=== PATIENT | female | born 1960 | race Caucasian/White ===

== ENCOUNTER → 2020-09-02 12:51 | Outpatient (CLI) | payer MEDICAID, SELFPAY ==
--- NOTE | 2020-09-02 13:02 | CDU_ITS ---
Reason For Study: Amaurosis fugax Rt. Velocities/BP Lt. Velocities/BP Prox CCA 91.7/18.6 cm/sec. Prox CCA 95.6/21.3 cm/sec. Mid CCA 85.2/17.3 cm/sec. Mid CCA 99.5/23.9 cm/sec. Dist CCA 78.6/22.6 cm/sec. Dist CCA 72.1/18.6 cm/sec. Prox ICA 39.5/10.8 cm/sec. Prox ICA 33.3/12.4 cm/sec. Mid ICA 82.6/23.9 cm/sec. Mid ICA 65.1/21.2 cm/sec. Dist ICA 68.2/.26.5 cm/sec. Dist ICA 59.7/21.2 cm/sec. Rt. ICA/CCA = 1.0. Lt. ICA/CCA = .7. Prox ECA 61.7/10.8 cm/sec. Prox ECA 86.5/13.4 cm/sec. Rt. Vert. 46.0/13.4 cm/sec. Lt. Vert. 47.6/12.4 cm/sec. Right Extracranial There is intimal thickening but no significant atherosclerotic plaque noted in the right common carotid artery. There is heterogeneous, smooth atherosclerotic plaque noted in the right internal carotid artery. There is intimal thickening but no significant atherosclerotic plaque noted in the right external carotid artery. Antegrade flow is noted in the right vertebral artery. Left Extracranial There is intimal thickening but no significant atherosclerotic plaque noted in the left common carotid artery. There is intimal thickening but no significant atherosclerotic plaque noted in the left internal carotid artery. There is intimal thickening but no significant atherosclerotic plaque noted in the left external carotid artery. Antegrade flow is noted in the left vertebral artery. Procedure Carotid Duplex [id number]. This is a Carotid Duplex examination using B-mode, color flow and specral Doppler. The exam was diagnostic. Exam performed in department. Interpretation Summary Mild (<50%) stenosis right extracranial internal carotid. No significant atherosclerotic plaque or stenosis noted in the left internal carotid artery. Flow within the vertebral arteries is antegrade bilaterally. Ordering Physician: Jonas Roldan Performed By: Roberto Maxwell RVT
== END ==
PROVIDERS: PCP Family Medicine; Referring Provider Ophthalmology; Visit Provider Ophthalmology
DX: G45.3 Amaurosis fugax (principal)
CPT/HCPCS: 93880

== ENCOUNTER 2021-02-11 15:30 | Outpatient (RCR) | payer MEDICAID, SELFPAY ==
--- NOTE | 2021-02-02 14:00 | HP.PTEVAL_ITS ---
Patient's Visit Information STEVEN REICH is a 60 year old F referred to Physical Therapy by Dr. Joni Sol MD with a diagnosis of Fibromyalsia with neck pain and PAPPAS.. Date of Evaluation: 02/02/21 Physical Therapist: Dharmesh Tucker DPT - Visit Plan Frequency: 2x /Week Duration: 4 Weeks Plan: Start with manual therapy for UT and suboccipitals, cervical ROM with SNAGs. Thoracic ROM into extension. Postural strengthing as tolerated. - Subjective Pt. is here today for her initial evaluation with diagnosis of fibromyalsia. Pt. reports having neck pain and PAPPAS over the past feeel months. She ws previously taking Welbutrin as she was going through a very stressful point in her life as he had suddently pasted away. Pt. desided to stop taking the Welbutrin and has noticed an improvement in her symptoms. Pt. reports decreased PAPPAS as well. Pt. reports no PAPPAS currently, but is having stiffness in her neck. She has doing chiropractic with mild relief. No N/T in either UE. No issues sleeping. Overall has seen improvement since stopping use of Welbutrin. Pt. is hopeful to decrease her tension in her neck and reduce her PAPPAS further allowing for increased tolerance to all ADLs and recreational activities. - Pain B UT Pain Intensity (Out of 10): 3 Pain Intensity Range: 1, 6 PAPPAS Pain Intensity (Out of 10): 0 Pain Intensity Range: 0, 5 Comment: sub acromial region - Objective POSTURE: Pt. has FH posture, slight rounded shoulders. Increased thoracic kyphosis noted as well. Improves in standing. PALPATION: Pt. has tenderness at sub occpitals bilaterally, R UT and R levator scapulea. NEURO: normal sensation and normal DTR of Biceps and tricsps. ROM: CERVICAL SPINE: flexion nil loss NE, extension min loss increase NW, SB R min loss NE, SB L min loss increase NW, rotation min loss bilat increase NW bilaterally. Shoulders: full no issues bilaterally. Thoracic spine: extension min/mod loss increase NW. rotation: nil loss NE bilat. MMT: B shoulders: 5/5 throughout. Cervical iso metrics 5/5 throughout; Deep flexor endurance hal 29sec with chin tuck. - Special Tests C/S Radiculapathy - Left Upper limb tension test: Negative C/S Radiculapathy - Right Upper limb tension test: Negative C/S Radiculapathy - Left Spurlings: Negative C/S Radiculapathy - Right Spurlings: Negative C/S Radiculapathy - Left Cervical distraction: Negative C/S Radiculapathy - Right Cervical distraction: Negative C/S Radiculapathy - Left Relief test: Negative C/S Radiculapathy - Right Relief test: Negative C/S Radiculapathy - Valsalva: Negative Cervical Sitting: Protrusion - Mechanical Response: No effect Cervical Sitting: Protrusion - Symptoms During Testing: No effect Cervical Sitting: Protrusion - Symptoms After Testing: No effect Cervical Sitting: Retraction - Mechanical Response: Increases motion Cervical Sitting: Retraction - Symptoms During Testing: Increases Cervical Sitting: Retraction - Symptoms After Testing: No worse Cervical Sitting: Retraction-Extension - Mechanical Response: Increases motion Cerv Sitting: Retraction-Extension - Symptoms During Testing: Increases Cerv Sitting: Retraction-Extension - Symptoms After Testing: No worse Cervical Sitting: Flexion - Mechanical Response: No effect Cervical Sitting: Flexion - Symptoms During Testing: No effect Cervical Sitting: Flexion - Symptoms After Testing: No effect Thoracic Sitting: Flexion - Mechanical Response: No effect Thoracic Sitting: Flexion - Symptoms During Testing: No effect Thoracic Sitting: Flexion - Symptoms After Testing: No effect Thoracic Sitting: Extension - Mechanical Response: Increases motion Thoracic Sitting: Extension - Symptoms During Testing: Increases Thoracic Sitting: Extension - Symptoms After Testing: No worse - Goals Goal 1:: LTG: Pt. to be I with HEP. Goal Time Frame: 4-6 Weeks Goal 2:: STG: pt. to sleep throughout the night without increase in symptoms. Goal Time Frame: 2-4 Weeks Goal 3:: LTG: Pt. to have decreased HAs to x1 occurance per week. Goal Time Frame: 4-6 Weeks Goal 4:: LTG: pt. to have improved postural awareness as seen in maintaining proper posture throughout therapy session. Goal Time Frame: 4-6 Weeks Goal 5:: LTG: Pt. to have full cervical ROM without increase in symptoms. Goal Time Frame: 4-6 Weeks Goal 6:: LTG: pt. to be able to complete deep neck flexor endurance test for 60sec without issues. - Rehabilitation Potential Physical Therapy Diagnosis: Pt. has signs and symptoms consistent with Fi bromyalsia with neck pain and HAs. Pt. has reduced HAs since removing a certain medications, but is still having stiffness in her thoracic spine and cervical spine. Pt. would benefit from PT to increase cervical ROM and postural mechanics and Rehabilitation Potential: Excellent - Anticipated Interventions Patient/Client Instruction: Educate patient on: Condition, Plan of Care, Risk Factors, Benefits of Fitness Program For the Purpose of:: To improve decision making, To improve self management, To prevent re-injury, To improve ability to perform tasks related to life management, To improve tolerance to ADL's Therapeutic Exercise to Include: Strength training, Power training, Endurance training, Postural training, Flexibilty training, Passive ROM, Active ROM, Dynamic Lumbar Stabilization, Best Exercises For the Purpose of:: To decrease pain, To decrease swelling/inflammation, To increase ROM, To improve nutrient delivery to tissue, To increase oxygenation perfusion, To improve muscle performance and motor function, To improve health of tissue, To decrease soft tissue restriction, To increase flexibility/ROM, To improve endurance Manual Therapy Techniques to Include: Mobilization, Functional dry needling, Soft tissue mobilization For the Purpose of:: To decrease pain, To increase ROM, To improve nutrient delivery to tissue, To increase oxygenation perfusion, To improve muscle performance and motor function, To improve health of tissue, To decrease soft tissue restriction, To increase flexibility/ROM Thank you for the opportunity to evaluate your patient. For Medicare and Medicare HMO plans, please review the plan of care and approve it. It will need to be FAXED BACK to us at [phone] for Medicare purposes. For Medicare only, by signing this I certify the plan of care. Please let me know if there are questions or concerns regarding this plan of care. Physician Signature: Date:
--- NOTE | 2021-03-04 15:27 | HP.PTDCNRP_ITS ---
STEVEN REICH was seen in my office for initial evaluation on 02/02/21. The following Plan of Care was established for this patient: Initial Frequency: 2x /Week Initial Duration: 4 Weeks Patient/Client Instruction: Educate patient on: Condition, Plan of Care, Risk Factors, Benefits of Fitness Program For the Purpose of:: To improve decision making, To improve self management, To prevent re-injury, To improve ability to perform tasks related to life management, To improve tolerance to ADL's Therapeutic Exercise to Include: Strength training, Power training, Endurance training, Postural training, Flexibilty training, Passive ROM, Active ROM, Dynamic Lumbar Stabilization, Best Exercises For the Purpose of:: To decrease pain, To decrease swelling/inflammation, To increase ROM, To improve nutrient delivery to tissue, To increase oxygenation perfusion, To improve muscle performance and motor function, To improve health of tissue, To decrease soft tissue restriction, To increase flexibility/ROM, To improve endurance Manual Therapy Techniques to Include: Mobilization, Functional dry needling, Soft tissue mobilization For the Purpose of:: To decrease pain, To increase ROM, To improve nutrient delivery to tissue, To increase oxygenation perfusion, To improve muscle performance and motor function, To improve health of tissue, To decrease soft tissue restriction, To increase flexibility/ROM This patient was last seen in our office 02/11/21. Pertinent comments regarding their Physical therapy will appear below: Pt. was seen for her initial evaluation and 1 follow. She has not been seen since for several weeks and will be DC from PT at this point in time. At this point I will be discontinuing this patient from physical therapy. I w ould be happy to see this patient again in the future if found appropriate by the physician. Thank you! Dharmesh Tucker, MIRNAT
== END 2021-02-11 19:00 | disposition home or self-care (01) ==
LOC: PT 15:30
PROVIDERS: PCP Family Medicine; Referring Provider Family Medicine; Visit Provider Family Medicine
DX: M79.7 Fibromyalgia (principal)
CPT/HCPCS: 97110; 97161

== ENCOUNTER 2024-04-04 11:00 | Outpatient (RCR) | payer MEDICAID, SELFPAY ==
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
--- NOTE | 2024-02-03 14:09 | HP.PTREVAL ---
Re-Evaluation Intro: Dr. Joni Sol MD, It has been my pleasure to treat STEVEN REICH over the last 8 visits for NECK M. SPASM AND CHRONIC CERVICAL PAIN. Please see the progress note below for an update on the physical therapy plan of care! Subjective Subjective: PATIENT REPORTS THAT OVER ALL SHE IS A LOT BETTER SINCE STARTING PT. TOLERATED LAST SESSION WELL BUT GOT SICK THE NEXT DAY. LEAVING FOR [place]. SOON SO WILL BE BACK TO PT UPON RETURN. THIS WEEK HAS BEEN ROUGH. THE PAIN HAS COME BACK IN THAT SPOT BUT NOT BAD BEFORE. GOT A STOMACH BUG AND DOING A LOT OF VOMITING. Objective Objective/Function: OVER-ALL PATIENT IS MAKING GOOD PROGRESS WITH PT AND IS A GOOD CANDIDATE TO CONTINUE PT. RECOMMEND RE-CHECK UPON RETURN FROM VACATION. PATIENT AGREEABLE. PATIENT WITH DECREASED C/O PAIN POST US TODAY. UE TIGHTNESS AND SCAPULAR WEAKNESS EVIDENT WITH EX TODAY. Cervical Mvmt Loss: Flex: NIL Pro: NIL Ext: MIN Ret: MOD RSB: MOD LSB: MIN - INCREASE - NW R Rot: NIL L Rot: MIN Plan Plan Plan: POSTURE CORRECTION/STRENGTHENING. INSTRUCTION IN DIAPHRAGMATIC BREATHING TO PROMOTE RELAXATION OF CERVICAL ACCESSORY MUSCLES. INSTRUCTION IN APPROPRIATE ACTIVITY MODIFICATIONS AND BODY MECHANICS. DEEP NECK FLEXOR STRENGTHENING. CERVICAL SCALENE, UPPER TRAP AND LEVATOR STRETCHING. PEC STRETCHING. SCAPULAR STRENGTHEING. MODALITIES NEEDED. Balance/Gait/Functional tests Balance/Special Test Scores Oswestry Neck Score: 12 Goals Goals Goal 1:: DECREASE C/O L NECK AND OCCIPUT PAIN BY AT LEAST 25% TO EASE ADL AND SLEEP FUNCTION. Goal Time Frame: 4-6 Weeks Goal Progress: Goal Met Goal 2:: PATIENT WILL HAVE INCREASED PAINFREE CERVICAL ROM TO EASE ADL'S Goal Time Frame: 4-6 Weeks Goal Progress: Progressing Goal 3:: PATIENT WILL HAVE INCREASED POSTURAL/SHLD STRENGTH TO EASE ADL'S. Goal Time Frame: 4-6 Weeks Goal Progress: Progressing Goal 4:: PATIENT WILL BE INDEP WITH A HEP FOR CONTINUED IMPROVEMENT ONCE FORMAL PHYSICAL THERPAY CONCLUDES. Goal Time Frame: 4-6 Weeks Goal Progress: Progressing Anticipated Interventions Anticipated Interventions Patient/Client Instruction: Educate patient on: Condition, Plan of Care and Risk Factors For the Purpose of:: To improve self management Therapeutic Exercise to Include: Strength training, Body mechanics, Postural training, Flexibilty training, Neuromotor development, Relaxation training and Scapular Strength/Stabilization For the Purpose of:: To decrease pain, To increase ROM, To improve muscle performance and motor function, To increase tolerance to activity/condition/position, To improve ability of physical actions for home/community/work/leisure, To decrease soft tissue restriction and To increase flexibility/ROM Manual Therapy Techniques to Include: Trigger point massage, Mobilization and Soft tissue mobilization For the Purpose of:: To decrease pain, To improve nutrient delivery to tissue and To decrease soft tissue restriction TENS: Yes IF ES: Yes Cryotherapy (ice pack, ice massage): Yes Thermo therapy (hot pack): Yes Ultrasound (thermal/non thermal): Yes Intermittent cervical traction: Yes For the Purpose of:: To decrease pain, To decrease swelling/inflammation and To improve nutrient delivery to tissue Re-Evaluation Ending Re-evaluation ending: Please do not hesitate to contact me at [phone] by phone or if you have questions or concerns regarding this new plan of care! Sincerely, Debbie Fuentes, PT, Cert MDT
--- NOTE | 2024-02-24 14:14 | HP.PTREVAL_ITS ---
Re-Evaluation Intro: Dr. Joni Sol MD, It has been my pleasure to treat STEVEN REICH over the last 9 visits for NECK M. SPASM AND CHRONIC CERVICAL PAIN. Please see the progress note below for an update on the physical therapy plan of care! Subjective Subjective: PATIENT REPORTS THE LEFT SIDE OF HER NECK IS STILL BETTER BUT STILL HAS SOME PAIN THERE. PAIN IN HER OCCIPITAL AREA WENT AWAY AND CAME BACK. HAS BEEN FAITHFUL AT DOING HEP. IS HURTING ALL OVER INCLUDING LOW BACK SO ISN'T SURE WHAT THAT IS ALL ABOUT. BACK TO WORK ALL WEEK. PATIENT REPORTS HER LIFE HAS BEEN VERY STRESSFUL SINCE SHE GOT BACK AND ISN'T SURE HOW THAT FACTORS INTO HER PAIN BECAUSE SHE INS'T SLEEPING WELL EITHER. HAD ACCUPUNTURE TUESDAY - NO EFFECT. 13 WKS SINCE LAST BOTEX. NO CHANGE IN EAR SX'S/Eustachian Tube Dysfunction. REQUESTING TO RESUME PT. Objective Objective/Function: INCREASED PAIN SINCE LAST SESSION DESPITE APPARENT HOME INSTRUCTION COMPLIANCE. GOOD RESPONSE TO ALL INTERVENTIONS TODAY WITH PATIENT REPORTING DECREASED OCCIPITAL AND L NECK REGION PAIN POST SESSION. APPROPRIATE TO RESUME PT WITH CURRENT GOALS AND POC. Plan Plan Plan: RESUME PT 2-3 TIMES A WK X 4-6 WKS FOR: POSTURE CORRECTION/STRENGTHENING. INSTRUCTION IN DIAPHRAGMATIC BREATHING TO PROMOTE RELAXATION OF CERVICAL ACCESSORY MUSCLES. INSTRUCTION IN APPROPRIATE ACTIVITY MODIFICATIONS AND BODY MECHANICS. DEEP NECK FLEXOR STRENGTHENING. CERVICAL SCALENE, UPPER TRAP AND LEVATOR STRETCHING. PEC STRETCHING. SCAPULAR STRENGTHEING. MODALITIES NEEDED. Balance/Gait/Functional tests Balance/Special Test Scores Oswestry Neck Score: 12 Goals Goals Goal 1:: DECREASE C/O L NECK AND OCCIPUT PAIN BY AT LEAST 25% TO EASE ADL AND SLEEP FUNCTION. Goal Time Frame: 4-6 Weeks Goal Progress: Goal Met Goal 2:: PATIENT WILL HAVE INCREASED PAINFREE CERVICAL ROM TO EASE ADL'S Goal Time Frame: 4-6 Weeks Goal Progress: Progressing Goal 3:: PATIENT WILL HAVE INCREASED POSTURAL/SHLD STRENGTH TO EASE ADL'S. Goal Time Frame: 4-6 Weeks Goal Progress: Progressing Goal 4:: PATIENT WILL BE INDEP WITH A HEP FOR CONTINUED IMPROVEMENT ONCE FORMAL PHYSICAL THERPAY CONCLUDES. Goal Time Frame: 4-6 Weeks Goal Progress: Progressing Anticipated Interventions Anticipated Interventions Patient/Client Instruction: Educate patient on: Condition, Plan of Care and Risk Factors For the Purpose of:: To improve self management Therapeutic Exercise to Include: Strength training, Body mechanics, Postural training, Flexibilty training, Neuromotor development, Relaxation training and Scapular Strength/Stabilization For the Purpose of:: To decrease pain, To increase ROM, To improve muscle performance and motor function, To increase tolerance to activity/condition/position, To improve ability of physical actions for home/com munity/work/leisure, To decrease soft tissue restriction and To increase flexibility/ROM Manual Therapy Techniques to Include: Trigger point massage, Mobilization and Soft tissue mobilization For the Purpose of:: To decrease pain, To improve nutrient delivery to tissue and To decrease soft tissue restriction TENS: Yes IF ES: Yes Cryotherapy (ice pack, ice massage): Yes Thermo therapy (hot pack): Yes Ultrasound (thermal/non thermal): Yes Intermittent cervical traction: Yes For the Purpose of:: To decrease pain, To decrease swelling/inflammation and To improve nutrient delivery to tissue Re-Evaluation Ending Re-evaluation ending: Please do not hesitate to contact me at [phone] by phone or if you have questions or concerns regarding this new plan of care! Sincerely, Debbie Fuentes, PT, Cert MDT
--- NOTE | 2024-04-04 11:46 | HP.PTDCSUM_ITS ---
Discharge Summary D/C summary: It has been my pleasure to treat STEVEN REICH referred by Dr. Joni Sol MD, with the diagnosis of NECK M. SPASM AND CHRONIC CERVICAL PAIN for a total of 18 visit(s). Discharge Date: 04/04/24 Please see the following information for a summary of their discharge status. Subjective Subjective: PATIENT REPORTS THE TX TOOK HER PAIN AWAY LAST VISIT AND IT HAS STAYED AWAY. TOOK SUDAFED AND THAT TOOK 50% OF HER EAR PAIN AWAY. GOING TO F OLLOW UP WITH PCP (DR. SOL FOR HER EAR PAIN WHICH SHE IS THINKING IS RELATED TO HER SINUS). ALSO GOING TO FOLLOW UP WITH DR. SOL ABOUT HER FATIGUE. REPORTS GENERAL COMPLIANCE WITH HEP WITH BENEFIT BUT STRUGGLING WITH FATIGUE LATELY. Pain OCCIPITAL PAIN: Pain Intensity (Out of 10): 2 L NECK: Pain Intensity (Out of 10): 2 HEADACHE: Pain Intensity (Out of 10): 8 JAW: Pain Intensity (Out of 10): 2 Overall Improvement % Improvement: 99 Objective Objective/Function: THIS PATIENT HAS DONE REALLY WELL WITH PT. ALL GOALS HAVE BEEN MET AND SHE IS APPROPRIATE FOR AND AGREEABLE TO DISCHARGE. UPONE EXAM TODAY: ROM deficit: JESSIE UE ROM WFL BUT MILD JESSIE SHLD TIGHTNESS. UE STRENGTH WITH MMT: 5/5 - NO C/O PAIN WTTH TESTING. Cervical Mvmt Loss: Flex: NIL Pro: NIL Ext: MIN Ret: MOD RSB: MIN LSB: MIN R Rot: NIL L Rot: MIN NO C/O PAIN WITH CERVICAL ROM TESTING TODAY. Postural strength: FAIR Palpation: GENERAL JESSIE UPPER TRAP TIGHTNESS BUT NO SPECIFIC TENDERNESS OR TRIGGER POINTS PALPABLE WITH LIGHT PALPATION. Goals Goal 1:: DECREASE C/O L NECK AND OCCIPUT PAIN BY AT LEAST 25% TO EASE ADL AND SLEEP FUNCTION. Goal Progress: Goal Met Goal 2:: PATIENT WILL HAVE INCREASED PAINFREE CERVICAL ROM TO EASE ADL'S Goal Progress: Goal Met Goal 3:: PATIENT WILL HAVE INCREASED POSTURAL/SHLD STRENGTH TO EASE ADL'S. Goal Progress: Goal Met Goal 4:: PATIENT WILL BE INDEP WITH A HEP FOR CONTINUED IMPROVEMENT ONCE FORMAL PHYSICAL THERPAY CONCLUDES. Goal Progress: Goal Met Plan Plan: D/C TO INDEP HEP. D/C Information d/c sentence: If there are questions or concerns regarding this patient's physical therapy, please feel free to call me at [phone]. Thank you for the referral of this patient. Sincerely, Debbie Fuentes, PT, Cert MDT Balance/Gait/Functional tests Balance/Special Test Scores Oswestry Neck Score: 3 Improvement % Improvement: 99
== END 2024-04-04 13:34 | disposition home or self-care (01) ==
LOC: PT 11:00
PROVIDERS: PCP Family Medicine; Referring Provider Family Medicine; Visit Provider Family Medicine
DX: M62.838 Other muscle spasm (principal); M54.2 Cervicalgia
CPT/HCPCS: 97012; 97140; 97162; 97530

== ENCOUNTER → 2025-05-06 | Outpatient (CLI) | payer SELFPAY ==
[2025-05-06 16:39] LABS: CRP 3.78 mg/L (0.0-3.0); Vitamin B12 1445 pg/mL (180-914)
[2025-05-10 19:08] LABS: ANTINUCLEAR ANTIBODIES DIRECT Positive (Negative); Anti-Chromatin <0.2 AI (0.0-0.9); Anti-Jo <0.2 AI (0.0-0.9); Anti-dsDNA Ab 10 IU/mL (0-9); Egg, Whole <0.10 kU/L (Class 0); Mussels <0.10 kU/L (Class 0); SJOGREN'S Anti-SS-A test 0.2 AI (0.0-0.9); SJOGREN'S Anti-SS-B test < 0.2 AI (0.0-0.9)
== END | disposition home or self-care (01) ==
LOC: LAB 14:53
PROVIDERS: PCP Family Medicine
DX: R19.7 Diarrhea, unspecified (principal); R10.9 Unspecified abdominal pain
CPT/HCPCS: 36415; 82607; 83516; 86003; 86005; 86036; 86038; 86140; 86225; 86235; 86671

== ENCOUNTER → 2025-05-07 | Outpatient (CLI) | payer SELFPAY ==
[2025-05-08 19:08] LABS: H. PYLORI STOOL AG Negative (Negative); Pancreatic Elastase, Fecal 186 (>200)
[2025-05-09 07:07] LABS: Calprotectin, Stool 1170 ug/g (0-120)
== END | disposition home or self-care (01) ==
LOC: LABSPEC 10:54
PROVIDERS: PCP Family Medicine
DX: R10.9 Unspecified abdominal pain (principal); R19.7 Diarrhea, unspecified
CPT/HCPCS: 82653; 83993; 87338; 87506

== ENCOUNTER → 2025-05-09 | Outpatient (CLI) | payer SELFPAY ==
--- NOTE | 2025-05-09 13:50 | CT_ITS ---
PROCEDURE: ABDOMEN/PELVIS WITH CONTRAST 05/09/2025 REASON FOR EXAM: ABD PAIN, NAUSEA, DIARRHEA TECHNIQUE: ABDOMEN/PELVIS WITH CONTRAST Coronal and Sagittal reconstruction series were provided. CONTRAST: Isovue 300 VOLUME: 99 mL One or more dose reduction techniques were used (e.g., Automated exposure control, adjustment of the mA and/or kV according to patient size, use of iterative reconstruction technique. RADIATION DOSE SUMMARY: CTDlvol: 28 mGy DLP: 990 mGycm COMPARISON: No FINDINGS: Under aerated lung bases. Normal heart size. Subcentimeter liver hypodensity favoring cyst. Normal gallbladder, pancreas, spleen, adrenal glands, kidneys. No hydronephrosis. Normal bladder. Status post hysterectomy. No retroperitoneal or pelvic adenopathy. No free air. Nondistended bowel. Normal appendix. No acute large bowel findings. Lumbar spine degeneration. No acute abdominal wall findings. CT/Abdomen/Pelvis WITH Contrast IMPRESSION: Normal appendix. No acute findings. Reading Location: [place] [address]
== END | disposition home or self-care (01) ==
PROVIDERS: PCP Family Medicine
DX: R10.9 Unspecified abdominal pain (principal); R19.7 Diarrhea, unspecified
CPT/HCPCS: 74177; Q9967

== ENCOUNTER 2025-05-31 12:52 | Day surgery (SDC) | payer SELFPAY ==
--- NOTE | 2025-05-29 12:50 | PAT.ANESEVAL ---
Pre-Assessment Diagnosis/Proposed Procedure Planned Operative Procedure(s): COLONOSCOPY Anesthesia History Anesthesia History - family law legal assistant: Anesthesia History - family law legal assistant Hx Hospitalization No 05/28/25 15:19 Any Problems With Anesthesia No 05/28/25 15:19 Cholinesterase deficiency No 05/28/25 15:19 You/Your Family Experience No 05/28/25 15:19 fever (hyperthermia) with Relationship Recent Exposure to Contagious No 08/20/13 08:11 Disease Does patient have nerve No 05/28/25 15:19 stimulator Patient instructed to have device shut off --Does patient have Pacemaker or ICD? When Was Last Pacemaker Check QUESTION #4 FULL TEXT: You/Your Family Experience fever (hyperthermia) with Anesthesia Last Oral Intake Last Oral intake: Last Oral Intake NPO since Meds taken in AM with sips of water? Meds patient instructed to take am of surgery PONV PONV - family law legal assistant: PONV - family law legal assistant Female Yes 05/28/25 15:19 HX of Motion Sickness Yes 05/28/25 15:19 HX of N/V After Surgery Yes 05/28/25 15:19 Non-Smoker Yes 05/28/25 15:19 Duration of Surgery greater No 05/28/25 15:19 than 60 minutes Number of Risk Factors 4 05/28/25 15:19 PONV Score Severe Risk 05/28/25 15:19 Height & Weight Height & Weight: Anesthesia: Height & Weight Height 5 ft 9 in 08/29/14 17:19 Respiratory Assessment Respiratory Assessment - family law legal assistant: Respiratory Tract Infection Hx - family law legal assistant Hx Respiratory Tract Infection No 05/28/25 15:19 STOP Sleep Apnea STOP Sleep Apnea - family law legal assistant: STOP Sleep Apnea - family law legal assistant Hx Hypertension No 05/28/25 15:19 Hx Sleep Apnea No 05/28/25 15:19 CPAP BIPAP Do you snore loudly (louder Yes 05/28/25 15:19 than talking or can be heard Do you often feel tired/ No 05/28/25 15:19 fatigued/ sleepy during daytime? Has anyone observed you stop Yes 05/28/25 15:19 breathing during sleep? STOP Results Positive 05/28/25 15:19 QUESTION #5 FULL TEXT : Do you snore loudly (louder than talking or can be heard through closed doors)? 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 Specify any problems Hx of Preganancy in last 3 No 05/28/25 15:19 Months Nurse Filling Out Transfusion [email or web address] 05/28/25 15:19 & Questions: Date: 05/28/25 05/28/25 15:19 Time: 15:24 05/28/25 15:19 Patient unable to answer at this time (ie. confused, unrespo /Reproduction History /Reproductive History - family law legal assistant: /Reproductive Hx- family law legal assistant Hx Now Gestational Age (in weeks): EDC: Hx Hx Para Hx Section SAB PFSH Medical History (Updated 05/28/25 @ 15:35 by Morteza Lomas) Wears glasses Wears contact lenses History of steroid therapy Perry's disease Thyroid disease Back pain Migraine headache History of ulceration Colonoscopy planned Anxiety Former smoker Shortness of breath on exertion Leg cramps Holter monitor, abnormal History of echocardiogram Cardiology follow-up encounter Home Medications ?Medication ?Instructions ?Recorded ?Last Taken ?Type thyroid (pork) 120 mg tablet 120 mg PO QDAY 05/06/25 Unknown History ([place] Thyroid) estradiol 0.075 mg/24 hr 1 patch transdermal 2XW 05/16/25 Unknown History semiweekly transdermal patch (Minivelle) testosterone 1 % (50 mg/5 gram) 1 packet transdermal QDAY 05/16/25 Unknown History transdermal gel packet (Vogelxo) diazepam 5 mg tablet 2.5 - 5 mg PO Q8 PRN anxiety 05/28/25 Unknown History epinephrine 0.3 mg/0.3 mL 0.3 ml IM X1 allergies 05/28/25 Unknown History injection, auto-injector Allergy/AdvReac Type Severity Reaction Status Date / Time amoxicillin (Amoxicillin) Allergy Rash Verified 05/28/25 15:17 ciprofloxacin AdvReac Hives Verified 05/28/25 15:17 morphine AdvReac Vomiting Verified 05/28/25 15:17 Surgical History (Updated 05/28/25 @ 15:35 by Morteza Lomas) H/O bilateral salpingo-oophorectomy Social History Smoking Status: Never smoker Audit: Pertinent Findings Pertinent Findings Echo (EF%) pertinent findings: September 11, 2024. EF is 60 to 65%. No regional wall motion abnormalities. No aortic stenosis. Consult pertinent findings: September 12, 2024. 1. Palpitations-Holter monitor showed 19 small runs of SVT. They were asymptomatic. PVC burden is less than 1%. Probable contributing factors include a thyroid medication that made her hyperthyroid. Patient is to avoid stimulants. Possible low-dose beta-blockers. 2. Ventricular tachycardia-recent Holter showed 8 beat run of ventricular tachycardia. Recommend stress test for evaluation of ischemia. Start beta-francois. Additional pertinent findings: August 17, 2024. Holter monitor. Underlying rhythm is sinus. PVC burden of less than 1%. PAC burden of less than 1.6%. No evidence of atrial fibrillation. No symptoms were reported. Recommendation Anesthesia Recommendation Anesthesia recommendation: F/U recommended (Patient's cardiology report indicated that the patient was supposed to do a stress test. Was this ever completed? And can we get this results.)
--- NOTE | 2025-05-30 11:38 | PAT.ANESEVAL ---
Pre-Assessment Diagnosis/Proposed Procedure Planned Operative Procedure(s): COLONOSCOPY Anesthesia History Anesthesia History - high pressure cleaner: Anesthesia History - high pressure cleaner Hx Hospitalization No 05/28/25 15:19 Any Problems With Anesthesia No 05/28/25 15:19 Cholinesterase deficiency No 05/28/25 15:19 You/Your Family Experience No 05/28/25 15:19 fever (hyperthermia) with Relationship Recent Exposure to Contagious No 08/20/13 08:11 Disease Does patient have nerve No 05/28/25 15:19 stimulator Patient instructed to have device shut off --Does patient have Pacemaker or ICD? When Was Last Pacemaker Check QUESTION #4 FULL TEXT: You/Your Family Experience fever (hyperthermia) with Anesthesia Last Oral Intake Last Oral intake: Last Oral Intake NPO since Meds taken in AM with sips of water? Meds patient instructed to take am of surgery PONV PONV - high pressure cleaner: PONV - high pressure cleaner Female Yes 05/28/25 15:19 HX of Motion Sickness Yes 05/28/25 15:19 HX of N/V After Surgery Yes 05/28/25 15:19 Non-Smoker Yes 05/28/25 15:19 Duration of Surgery greater No 05/28/25 15:19 than 60 minutes Number of Risk Factors 4 05/28/25 15:19 PONV Score Severe Risk 05/28/25 15:19 Height & Weight Height & Weight: Anesthesia: Height & Weight Height 5 ft 9 in 08/29/14 17:19 Respiratory Assessment Respiratory Assessment - high pressure cleaner: Respiratory Tract Infection Hx - high pressure cleaner Hx Respiratory Tract Infection No 05/28/25 15:19 STOP Sleep Apnea STOP Sleep Apnea - high pressure cleaner: STOP Sleep Apnea - high pressure cleaner Hx Hypertension No 05/28/25 15:19 Hx Sleep Apnea No 05/28/25 15:19 CPAP BIPAP Do you snore loudly (louder Yes 05/28/25 15:19 than talking or can be heard Do you often feel tired/ No 05/28/25 15:19 fatigued/ sleepy during daytime? Has anyone observed you stop Yes 05/28/25 15:19 breathing during sleep? STOP Results Positive 05/28/25 15:19 QUESTION #5 FULL TEXT : Do you snore loudly (louder than talking or can be heard through closed doors)? 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 Specify any problems Hx of Preganancy in last 3 No 05/28/25 15:19 Months Nurse Filling Out Transfusion [email or web address] 05/28/25 15:19 & Questions: Date: 05/28/25 05/28/25 15:19 Time: 15:24 05/28/25 15:19 Patient unable to answer at this time (ie. confused, unrespo /Reproduction History /Reproductive History - high pressure cleaner: /Reproductive Hx- high pressure cleaner Hx Now Gestational Age (in weeks): EDC: Hx Hx Para Hx Section SAB PFSH Medical History (Updated 05/28/25 @ 15:35 by Morteza Lomas) Wears glasses Wears contact lenses History of steroid therapy Perry's disease Thyroid disease Back pain Migraine headache History of ulceration Colonoscopy planned Anxiety Former smoker Shortness of breath on exertion Leg cramps Holter monitor, abnormal History of echocardiogram Cardiology follow-up encounter Home Medications ?Medication ?Instructions ?Recorded ?Last Taken ?Type thyroid (pork) 120 mg tablet 120 mg PO QDAY 05/06/25 Unknown History ([place] Thyroid) estradiol 0.075 mg/24 hr 1 patch transdermal 2XW 05/16/25 Unknown History semiweekly transdermal patch (Minivelle) testosterone 1 % (50 mg/5 gram) 1 packet transdermal QDAY 05/16/25 Unknown History transdermal gel packet (Vogelxo) diazepam 5 mg tablet 2.5 - 5 mg PO Q8 PRN anxiety 05/28/25 Unknown History epinephrine 0.3 mg/0.3 mL 0.3 ml IM X1 allergies 05/28/25 Unknown History injection, auto-injector Allergy/AdvReac Type Severity Reaction Status Date / Time amoxicillin (Amoxicillin) Allergy Rash Verified 05/28/25 15:17 ciprofloxacin AdvReac Hives Verified 05/28/25 15:17 morphine AdvReac Vomiting Verified 05/28/25 15:17 Surgical History (Updated 05/28/25 @ 15:35 by Morteza Lomas) H/O bilateral salpingo-oophorectomy Social History Smoking Status: Never smoker Audit: Pertinent Findings HISTORY of Pertinent Findings History of Pertinent Findings: Echo Pertinent Findings Echo (EF%) pertinent findings September 11, 2024. EF is 60 05/29/25 13:04 to 65%. No regional wall motion abnormalities. No aortic stenosis. Consult Pertinent Findings Consult pertinent findings September 12, 2024. 05/29/25 12:57 1. Palpitations-Holter monitor showed 19 small runs of SVT. They were asymptomatic. PVC burden is less than 1%. Probable contributing factors include a thyroid medication that made her hyperthyroid. Patient is to avoid stimulants. Possible low- dose beta-blockers. 2. Ventricular tachycardia- recent Holter showed 8 beat run of ventricular tachycardia. Recommend stress test for evaluation of ischemia. Start beta- francois. Additional Pertinent Findings Additional pertinent findings August 17, 2024. Holter 05/29/25 13:05 monitor. Underlying rhythm is sinus. PVC burden of less than 1%. PAC burden of less than 1.6%. No evidence of atrial fibrillation. No symptoms were reported. Recommendation Anesthesia Recommendation Anesthesia recommendation: OPTIMIZED for anesthesia (Patient was seen by cardiology this morning 05/30/2025. The patient's information was reviewed by the veterinary toxicologist and he deemed her to be low risk and be able to proceed to the procedure.)
[2025-05-31] VITALS (7 sets, daily range): BP systolic 126–136; BP diastolic 68–84; PULSE 60–73; RESP 16–18; TEMP 36.1–36.6; O2SAT 97–100; BMI 30.2
--- NOTE | 2025-05-31 13:16 | HP.PCM_ITS ---
HPI - General General Date of Admission: 05/31/25 Date of Service: 05/31/25 Chief Complaint: Diarrhea HPI Narrative STEVEN BELTRAN, is a 65 F who presents regarding concerns for watery diarrhea with urgency. Differential diagnoses include: IBD, IBS-D, EPI, celiac, food allergies, enteric pathogen. 05.06.25 RAST negative, B12 1445(914), CRP 3.78(<3),HONEY +, Dbl strand DNA Ab 10(9), fec gia 1170, duran elast 186, neg H.pylori stool, enteric NEG 05.09.25 CT Abd/pelvis Subcentimeter liver hypodensity favoring cyst. Normal gallbladder, pancreas, spleen, adrenal glands, kidneys. No hydronephrosis. Normal bladder. Status post hysterectomy. No retroperitoneal or pelvic adenopathy. No free air. Nondistended bowel. Normal appendix. Moderate stool burden. No acute large bowel findings. Lumbar spine degeneration. No acute abdominal wall findings. 05.16.25 OV Reviewed above results and implications. IBD profile still pending. She states that she had her first formed stool this morning. She reports complete resolution of abdominal pain. She has been very mindful of the types of foods she's eating, has lost 14LBS and is experiencing greatly reduced heartburn/reflux. She has also started taking Metamucil daily. She reports that she continues to be involved in some family stressors that are really working on my nerves since Mom passed. She knows that she needs to ex-communicate the persons involved and is working on that. [facility] [place] Medical History Wears glasses Wears contact lenses History of steroid therapy Perry's disease Thyroid disease Back pain Migraine headache History of ulceration Colonoscopy planned Anxiety Former smoker Shortness of breath on exertion Leg cramps Holter monitor, abnormal History of echocardiogram Cardiology follow-up encounter Home Medications ?Medication ?Instructions ?Recorded ?Last Taken ?Type thyroid (pork) 120 mg tablet 120 mg PO QDAY 05/06/25 0 05/31/25 06:30 History ([place] Thyroid) estradiol 0.075 mg/24 hr 1 patch transdermal 2XW 05/03 Unknown History semiweekly transdermal patch (Minivelle) testosterone 1 % (50 mg/5 gram) 1 packet transdermal Q DAY 05/16/25 Unknown History transdermal gel packet (Vogelxo) diazepam 5 mg tablet 2.5 - 5 mg PO Q8 PRN anxiety 05/28/25 Unknown History epinephrine 0.3 mg/0.3 mL 0.3 ml IM X1 allergies 05/28 Unknown History injection, auto-injector Allergy/AdvReac Type Severity Reaction Status Date / Time amoxicillin (Amoxicillin) Allergy Rash Verified 05/31/25 13:09 ciprofloxacin AdvReac Hives Verified 05/31/25 13:09 morphine AdvReac Vomiting Verified 05/31/25 13:09 Surgical History H/O bilateral salpingo-oophorectomy Social History Smoking Status: Never smoker ROS Constitutional Constitutional: Denies fatigue, fever(s), poor appetite, weight gain or weight loss Gastrointestinal Gastrointestinal: Denies belching, bloating, change in bowel habits, change in stool character, chewing difficulty, coffee ground emesis, constipation, cramping, diarrhea, dyspepsia, dysphagia, early satiety, excessive flatus, fecal incontinence, heartburn, hematemesis, hematochezia, hemorrhoids, loose stools, melena, nausea, odynophagia, rectal bleeding, tenesmus, vomiting or weight changes Vital Signs Vital Signs Vital Signs: 05/31/25 13:12 05/31/25 13:12 Temperature 97.8 F Temperature Source Temporal Pulse Rate 65 Respiratory Rate 16 Respiratory Pattern Normal Blood Pressure 134/84 H Blood Pressure Mean 100 Blood Pressure Source Monitor Blood Pressure Position Semi-Fowlers Blood Pressure Location Right Arm Pulse Ox 100 Oxygen Delivery Method Room Air Weight Weight: 205 lb 0.478 oz Body Mass Index (BMI) 30.2 Physical Exam Const alert, oriented x3, no apparent distress and healthy appearing General Appearance: cooperative GI normal to inspection, nondistended, normoactive bowel sounds, soft to palpation, non-tender and non-distended Percussion: normal to percussion Rectal Exam: deferred Assessment & Plan Assessment/Plan (1) Abdominal pain: QUALIFIERS: Abdominal location: left lower quadrant Qualified Code(s): R10.32 - Left lower quadrant pain (2) Diarrhea: QUALIFIERS: Diarrhea type: unspecified type Qualified Code(s): R19.7 - Diarrhea, unspecified PLAN: Assessment and Plan Assessment and Plan (1) Diarrhea: Status: Acute Qualifiers: Diarrhea type: unspecified type Qualified Code(s): R19.7 - Diarrhea, unspecified (2) Abdominal pain: Status: Acute Qualifiers: Abdominal location: left lower quadrant Qualified Code(s): R10.32 - Left lower quadrant pain Orders: Orders Calprotectin, Stool 06/03/25 R10.32 - Left lower quadrant pain, R19.7 - Diarrhea, unspecified Plan STEVEN BELTRAN, is a 65 F who presents to the office today for FU. Discussed care plan with her and her present for exam. * continue Metamucil daily * repeat fecal calprotectin in 4wks, ONLY IF NOT ON BOWEL PREP * schedule colonoscopy * ok for periodic use of Tums, if more than twice wkly notify office * office FU 2wks post endoscopy
[2025-05-31] MEDS: Lactated Ringers 1,000 ML 15 ML IV (13:17)
--- NOTE | 2025-05-31 13:57 | PCM.PRE.AN2 ---
ASA Classification* ASA Classification ASA Classification: 2 Assessment & Plan Anesthesia* Anesthesia Assessment Anesthesia Assessment: Discussed sedation and/or anesthesia options, risks, benefits, and alternatives with patient/parents/legal guardian/POA. Questions invited. The patient/parents/legal guardian/POA seems to understand and agrees to proceed with anesthesia plan. Reviewed the physical assessment, medical history, allergy history and patient home medications list prior to surgery/procedure/anesthetic and documented any changes. Performed airway and anesthesia risk assessments. Anesthesia Type Anesthesia Type: MAC History Source History Obtained from:: Patient and Chart Anesthesia Focused Assessment* Temperature: 97.8 F Pulse Rate: 65 Blood Pressure: 134/84 Respiratory Rate: 16 Pulse Ox: 100 Oxygen Delivery Method: Room Air Airway Assessment Mouth opens: >3 cm Mallampati Score: IV Teeth Condition: Caps/Crowns (Patient has couple crowns on lower molars. They are tight.) Neck Range of motion (ROM): Full ROM Labs Anesthesia Preop lab: CBC WBC 7.2 K/mm3 (4.4-11.0) 08/29/14 17:58 08/29/14 RBC 4.81 M/mm3 (4.2-5.4) 08/29/14 17:58 08/29/14 Hgb 14.6 g/dl (12.0-15.0) 08/29/14 17:58 08/29/14 Hct 42.9 % (37-47) 08/29/14 17:58 08/29/14 Plt Count 256 K/mm3 (150-450) 08/29/14 17:58 08/29/14 CHEMISTRY Potassium 3.6 mmol/L (3.5-5.1) 08/29/14 17:58 08/29/14 Sodium 140 mmol/L (136-145) 08/29/14 17:58 08/29/14 BUN 13 mg/dL (7-18) 08/29/14 17:58 08/29/14 Creatinine 1.1 mg/dL (0.6-1.0) H 08/29/14 17:58 08/29/14 Glucose 84 mg/dL (70-110) 08/29/14 17:58 08/29/14 COAG PT 13.7 SECONDS (11.9-14.4) 08/14/13 16:09 08/14/13 Pre-Assessment Diagnosis/Proposed Procedure Planned Operative Procedure(s): COLONOSCOPY Anesthesia History 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 When Was Last Pacemaker Check QUESTION #4 FULL TEXT: You/Your Family Experience fever (hyperthermia) with Anesthesia Last Oral Intake Last Oral intake: Last Oral Intake NPO since 10:00 05/31/25 13:12 Meds taken in AM with sips of Yes 05/31/25 13:12 water? Meds patient instructed to take am of surgery Any additional information?: Yes NPO since: 10:15 (Patient finished prep at 10:15 AM.) Meds taken in AM with sips of water?: Yes PONV PONV - merchandise execution leader: PONV - merchandise execution leader Female Yes 05/28/25 15:19 HX of Motion Sickness Yes 05/28/25 15:19 HX of N/V After Surgery Yes 05/28/25 15:19 Non-Smoker Yes 05/28/25 15:19 Duration of Surgery greater No 05/28/25 15:19 than 60 minutes Number of Risk Factors 4 05/28/25 15:19 PONV Score Severe Risk 05/28/25 15:19 Height & Weight Height & Weight: Anesthesia: Height & Weight Height 5 ft 9 in 05/31/25 13:12 Weight: 93 kg 05/31/25 13:12 Body Mass Index (BMI) 30.2 05/31/25 13:12 Respiratory Assessment Respiratory Assessment - merchandise execution leader: Respiratory Tract Infection Hx - merchandise execution leader Hx Respiratory Tract Infection No 05/28/25 15:19 STOP Sleep Apnea STOP Sleep Apnea - merchandise execution leader: STOP Sleep Apnea - merchandise execution leader Hx Hypertension No 05/28/25 15:19 Hx Sleep Apnea No 05/28/25 15:19 CPAP BIPAP Do you snore loudly (louder Yes 05/28/25 15:19 than talking or can be heard Do you often feel tired/ No 05/28/25 15:19 fatigued/ sleepy during daytime? Has anyone observed you stop Yes 05/28/25 15:19 breathing during sleep? STOP Results Positive 05/28/25 15:19 QUESTION #5 FULL TEXT : Do you snore loudly (louder than talking or can be heard through closed doors)? Tobacco Use History Tobacco Use History - merchandise execution leader: Tobacco Use History - merchandise execution leader Tobacco Use Smoking Status Never smoker 05/28/25 15:19 Hx Tobacco Use No 05/28/25 15:19 Years Smoking Packs Smoked per Day Smoking Cessation Date was within the last 15 years Hx Smoking Cessation Date Hx Smoking Cessation Counseling Hematologic Medial History Hematologic Hx - merchandise execution leader: Hematologic Medical Hx - staff pharmacist hospital Hx of Blood Transfusion No 05/28/25 15:19 Hx of Transfusion in last 3 No 05/28/25 15:19 Months Date of Last Transfusion (if within last 3 months) Ever experience any problems No 05/28/25 15:19 with transfusion(s)? Specify any problems Hx of Preganancy in last 3 No 05/28/25 15:19 Months Nurse Filling Out Transfusion [email or web address] 05/28/25 15:19 & Questions: Date: 05/28/25 05/28/25 15:19 Time: 15:24 05/28/25 15:19 Patient unable to answer at this time (ie. confused, unrespo /Reproduction History /Reproductive History - merchandise execution leader: /Reproductive Hx- merchandise execution leader Hx Now Gestational Age (in weeks): EDC: Hx Hx Para Hx Section SAB Active Medications Active Medications: Current Medications Generic Name Dose Route Start Last Admin Trade Name Freq PRN Reason Stop Dose Admin Lactated Ringer's 1,000 mls @ 15 mls/hr 05/31/25 13:00 05/31/25 13:17 IV 15 mls/hr .Q48H SARA Administration PFSH Medical History Wears glasses Wears contact lenses History of steroid therapy Perry's disease Thyroid disease Back pain Migraine headache History of ulceration Colonoscopy planned Anxiety Former smoker Shortness of breath on exertion Leg cramps Holter monitor, abnormal History of echocardiogram Cardiology follow-up encounter Home Medications ?Medication ?Instructions ?Recorded ?Last Taken ?Type thyroid (pork) 120 mg tablet 120 mg PO QDAY 05/06/25 05/31/25 06:30 History ([place] Thyroid) estradiol 0.075 mg/24 hr 1 patch transdermal 2XW 05/16/25 Unknown History semiweekly transdermal patch (Minivelle) testosterone 1 % (50 mg/5 gram) 1 packet transdermal QDAY 05/16/25 Unknown History transdermal gel packet (Vogelxo) diazepam 5 mg tablet 2.5 - 5 mg PO Q8 PRN anxiety 05/28/25 Unknown History epinephrine 0.3 mg/0.3 mL 0.3 ml IM X1 allergies 05/28/25 Unknown History injection, auto-injector Allergy/AdvReac Type Severity Reaction Status Date / Time amoxicillin (Amoxicillin) Allergy Rash Verified 05/31/25 13:09 ciprofloxacin AdvReac Hives Verified 05/31/25 13:09 morphine AdvReac Vomiting Verified 05/31/25 13:09 Surgical History (Updated 05/31/25 @ 14:[address] Rafa Reddy MD) S/P vaginal hysterectomy H/O bilateral salpingo-oophorectomy Social History Smoking Status: Never smoker Review of Systems (Anesthesia) ROS Narrative System reviewed and no additional complaints, except as documented.
--- NOTE | 2025-05-31 14:00 | COLBX_PTH ---
PATIENT: STEVEN BELTRAN LOC: EN U#:[id number] AGE/SX: 65/F ROOM: RE05/31/[address]: Dr. Steven Spencer DO : 1960 BED: DIS: 05/31/2025 SPEC #: [id number] RECD: 05/31/25 14:52 STATUS: MALIA REStu #: [id number] CAMILLE: 05/31/25 14:[address]: Steven Spencer DEPT: SURGICAL PATHOLOGY RECD BY: Sloan Durham ENTERED: 06/03/25 10:44 SP TYPE: COLON BX ANTONETTE DR: Dr. Joni Sol MD Tissues: A - COLON BIOPSY Procedures: Surgery Specimen Level IV HEADER OPERATION: Colonoscopy, biopsy PRE-OP DIAGNOSIS: Diarrhea, abdominal pain TISSUE SUBMITTED: A- Random colonic biopsy MICROSCOPIC DIAGNOSIS A. Large intestine, random, biopsies: * Benign colonic mucosa with minimal cryptic architectural distortion and with an increased mixed lymphoplasmacytic and eosinophilic inflammatory cell infiltrate in the lamina propria with extension into the surface epithelium (See Comment) COMMENT These findings are not specific and may represent an infectious process and/or a possible drug reaction. MICROSCOPIC DESCRIPTION Slides are reviewed. GROSS DESCRIPTION A. Received in fixative is one container labeled with the patient's name and designated Random colon biopsy. The specimen consists of multiple irregular fragments of light lafleur tissue that in aggregate measure 0.9 x 0.5 x 0.1 cm. The specimen is totally submitted in one cassette. AR 06/03/2025 CPT:73545
[2025-05-31] MEDS: Lidocaine 1% (5 ml sdv) 5 ML Vial 10 ML IV (14:14)
--- NOTE | 2025-05-31 14:36 | PCM.POST.ANE ---
Anesthesia: Postop Eval I Current Vital Signs Temperature: 97 F Pulse Rate: 73 Blood Pressure: 126/73 Respiratory Rate: 18 Pulse Ox: 97 Assessment Airway patent: Yes Spontaneous unlabored respirations: Yes nausea: No Vomiting: No Anesthesia Complication: No Fluid Hydration Crystalloid volume administer (ml): 200 Total IV fluid infused: 200 Progress Note Anesthesia document: Postop Eval 1 completed: Yes
--- NOTE | 2025-05-31 14:37 | OP.COLON_ITS ---
Patient Name: Simin Negrete Procedure Date: 05/31/2025 1:56 PM Date of : 1960 Age: 65 Procedure: Colonoscopy Indications: Clinically significant diarrhea of unexplained origin Providers: Steven Spencer DO Referring MD: Joni Sol Medicines: Monitored Anesthesia Care Patient Profile: This is a 65 year old female. Last Colonoscopy: several years ago. Complications: No immediate complications. Procedure: Pre-Anesthesia Assessment: - Prior to the procedure, a History and Physical was performed, and patient medications and allergies were reviewed. The patient is competent. The risks and benefits of the procedure and the sedation options and risks were discussed with the patient. All questions were answered and informed consent was obtained. Patient identification and proposed procedure were verified by the physician in the pre-procedure area. Mental Status Examination: alert and oriented. Airway Examination: normal oropharyngeal airway and neck mobility. Respiratory Examination: clear to auscultation. CV Examination: normal. Prophylactic Antibiotics: The patient does not require prophylactic antibiotics. Prior Anticoagulants: The patient has taken no anticoagulant or antiplatelet agents. ASA Grade Assessment: II - A patient with mild systemic disease. After reviewing the risks and benefits, the patient was deemed in satisfactory condition to undergo the procedure. The anesthesia plan was to use monitored anesthesia care (MAC). Immediately prior to administration of medications, the patient was re-assessed for adequacy to receive sedatives. The heart rate, respiratory rate, oxygen saturations, blood pressure, adequacy of pulmonary ventilation, and response to care were monitored throughout the procedure. The physical status of the patient was re-assessed after the procedure. After I obtained informed consent, the scope was passed under direct vision. Throughout the procedure, the patient's blood pressure, pulse, and oxygen saturations were monitored continuously. The Colonoscope was introduced through the anus and advanced to the cecum, identified by appendiceal orifice and ileocecal valve. The colonoscopy was performed without difficulty. The patient tolerated the procedure well. The quality of the bowel preparation was adequate. The ileocecal valve, appendiceal orifice, and rectum were photographed. Scope In: 2:16:01 PM Scope Withdrawal Time 0 hours 10 minutes 47 seconds Scope Out: 2:30:53 PM Total Procedure Duration Time 0 hours 14 minutes 52 seconds Findings: The perianal and digital rectal examinations were normal. A few small-mouthed diverticula were found in the recto-sigmoid colon, sigmoid colon and descending colon. There was moderate spasm in the recto-sigmoid colon, in the sigmoid colon, in the descending colon, in the transverse colon and in the ascending colon. Biopsies were taken with a cold forceps for histology. Verification of patient identification for the specimen was done. Estimated blood loss was minimal. The exam was otherwise without abnormality on direct and retroflexion views. Impression: - Diverticulosis in the recto-sigmoid colon, in the sigmoid colon and in the descending colon. - Moderate colonic spasm consistent with irritable bowel syndrome. Biopsied. - The examination was otherwise normal on direct and retroflexion views. Recommendation: - Discharge patient to home. - Resume previous diet. - Continue present medications. - Await pathology results. - Repeat colonoscopy in 10 years for screening purposes. Procedure Code(s): --- Professional --- 92221, Colonoscopy, flexible; with biopsy, single or multiple CPT copyright 2021 [employer]. All rights reserved. The codes documented in this report are preliminary and upon test kitchen home economist review may be revised to meet current compliance requirements. Steven Spencer DO 05/31/2025 2:36:38 PM This report has been signed electronically. Number of Addenda: 0 Note Initiated On: 05/31/2025 1:56 PM
--- NOTE | 2025-05-31 14:37 | OP.PROVAT_ITS ---
05/31/2025 Joni Sol Re : Colonoscopy procedure for Simin Negrete Dear Ebenezer This procedure was performed on Saturday, May 31, 2025. My impressions and recommendations are as follows: Impressions : - Diverticulosis in the recto-sigmoid colon, in the sigmoid colon and in the descending colon. - Moderate colonic spasm consistent with irritable bowel syndrome. Biopsied. - The examination was otherwise normal on direct and retroflexion views. Recommendations : - Discharge patient to home. - Resume previous diet. - Continue present medications. - Await pathology results. - Repeat colonoscopy in 10 years for screening purposes. My findings are described in the full procedure note, which is enclosed. If I can be of further assistance, please feel free to contact me at . Sincerely, Steven Spencer, 05/31/2025 2:36:38 PM This report has been signed electronically.
== END 2025-05-31 15:11 | disposition home or self-care (01) ==
LOC: EN 12:52 → AC 12:53
PROVIDERS: PCP Family Medicine; Referring Provider Family Medicine; Visit Provider Internal Medicine Gastroenterology
PROC: 0DJD8ZZ Inspection of Lower Intestinal Tract, Via Natural or Artificial Opening Endoscopic (ICD-10-PCS; CPT 45378; principal; 2025-05-31 13:55)
DX: K58.0 Irritable bowel syndrome with diarrhea (principal); R10.32 Left lower quadrant pain; K57.30 Diverticulosis of large intestine without perforation or abscess without bleeding; Z90.722 Acquired absence of ovaries, bilateral; K63.89 Other specified diseases of intestine
CPT/HCPCS: 45380; 88305

== ENCOUNTER → 2025-06-04 | Outpatient (CLI) | payer SELFPAY ==
[2025-06-06 08:08] LABS: Calprotectin, Stool 304 ug/g (0-120)
== END | disposition home or self-care (01) ==
LOC: LABSPEC 10:06
PROVIDERS: PCP Family Medicine; Referring Provider Student in an Organized Health Care Education/Training Program; Visit Provider Student in an Organized Health Care Education/Training Program
DX: R19.7 Diarrhea, unspecified (principal); R10.32 Left lower quadrant pain
CPT/HCPCS: 83993